=== PATIENT | female | born 1995 | race Caucasian/White ===

== ENCOUNTER 2016-08-25 19:39 | Outpatient (CLI) | payer OTHER ==
[~2016-08-25] VITALS: Ht 162.6 cm; Wt 69.0 kg
[~2016-08-25 19:39] MED LIST: PRENTAB9 PO; RANI15TA PO
[2016-08-25 19:53] VITALS: BP 118/69
[2016-08-25 20:51] VITALS: BP 105/64
--- NOTE | 2016-08-25 21:34 | HPE ---
DATE OF ADMISSION: 08/25/2016 21-year-old 1, para 1, last menstrual period (LMP) 12/19/2015, estimated date of delivery (EDC) 09/24/2016 at 35 and 5 weeks of gestation with a history that she had premature rupture of membranes 4-1/2 days ago. She has no vaginal bleeding. Presently no contractions, occasional discharge. Labs show A+, HIV negative, hepatitis negative, RPR negative, rubella immune. Varicella by history. Urine negative. Gonorrhea, chlamydia negative, 1-hour glucose 131. GBS status unknown. On examination there is no evidence of vaginal bleeding or discharge. Symphysis fundus height is 36, vertex presenting. Category one strip. Nitrazine is negative. Cervix is closed, posterior high, balottable. heart is 144 beats per minute. Category one strip. Blood pressure is 118/69, respirations are 18, pulse 107, temperature 98.3. Urine is 10/20, pH 5. We have counseled the patient regarding pelvic rest, keep her appointment on Wednesday. kick chart. Resume hydration. If there is decreased movement or actual rupture of membranes where it is draining down her legs she is to return immediately.
== END 2016-08-25 21:05 | disposition home or self-care (01) ==
LOC: M LDO 19:39
PROVIDERS: ATTEND Obstetrics & Gynecology
DX: O42.913 Preterm premature rupture of membranes, unspecified as to length of time between rupture and onset of labor, third trimester (principal); Z3A.35 35 weeks gestation of pregnancy

== ENCOUNTER 2016-09-22 12:56 | Inpatient (IN) | payer OTHER ==
[2016-09-22] VITALS (14 sets, daily range): BP systolic 94–134; BP diastolic 51–82
[~2016-09-22] VITALS: Ht 162.6 cm; Wt 72.0 kg
--- NOTE | 2016-09-22 16:34 | REP ---
OB ULTRASOUND: HISTORY: Biophysical profile obtained due to decreased movement. COMPARISON: There are priors for comparison. Limited examination shows a single living intrauterine gestation in the cephalic presentation. Doppler interrogation of the heart shows a heart rate of 148 beats per minute. The cervic measures 2.8 cm in length and is closed. The subjective amniotic fluid volume is within normal limits. The placenta is posterior and not low lying. The calculated amniotic fluid index is 13.3 with an expected range of 7.1 to 21.8. Doppler interrogation of the umbilical artery shows an A/B ratio of 2.03. This is slightly below the expected range of 2.8 to 3.8. biophysical profile score: Breathing 0 Movement 2 Tone 2 Amniotic fluid volume 2 Total: 6 out of 8. IMPRESSION: Limited examination as described above. Signed by Dale Bose DO 09/23/2016 10:11 A
[2016-09-22] MEDS ORDERED: LR 1,000 ML IV SCH (16:57)
[2016-09-22] MEDS ORDERED: OXYTOCIN DRIP 30 UNITS in APPROPRIATE DILUENT 1 EA IV SCH (17:00)
--- NOTE | 2016-09-22 18:42 | HPE ---
DATE OF ADMISSION: 09/22/2016 This lady is a 21-year-old 1, para 0, LMP 12/21/2015, EDC 09/24/2016 at 39 weeks of gestation. She comes in with a history of multiple complaints, having had an episode of weakness and feeling tired for about an hour and then she ate something and laid down and when she got up she appeared to be lightheaded for a period of time and she decided to lie down again. After an interval of undetermined time, when she got up she was not tired or weak and was not lightheaded anymore but she did notice that there was a change in the rhythm of the kick chart. She also complains of bilateral hip pain, vaginal discharge, [place] contractions. Her risk factors are that she transferred in at 30 weeks of gestation. She suffers from reflux and takes Zantac. She has had appropriate interval checkups at the [facility]. Has really not had any issues until today. She has had nine visits. Her anatomy scan was normal. Her blood work shows that she is A+, HIV negative, hepatitis negative, RPR negative, rubella immune. Varicella was immune by history. Urine was negative. Gonorrhea and chlamydia were negative. 1-hour glucose was 131 and she is GBS negative. She declined quad screening and there is no demarcation regarding cystic fibrosis. She is planning on and she is planning on an epidural. On admission her blood pressure was 134/82, respirations are 18, pulse was 99 and temperature 98.6. Urine was 1.010, pH 5, negative, negative, negative. On general examination, she does not appear in any distress. Symphysis fundus height is 40, vertex is presenting part, she is not having any contractions. She is having the occasional uterine irritability. She is not having a category one strip, there are periods of time where there is reduced variability and then there is the occasional acceleration but more so there was prolonged times of reduced variability. There is four quadrant bowel sounds noted. heart baseline is 140. After being on the monitor for about an hour and there is no change in the heart rate pattern, we elected to go ahead and do a biophysical profile which indicated that she had 6/8 in which she had normal fluid at 13.3, SD ratio was 2.03. The baby is in the vertex position and there is no evidence of previa or abruption. Placenta was posterior and grade 3. There was a nuchal cord noted and her total profile was 6/8. She then came back to labor and delivery, replaced on the monitor, and we had a similar NST where there was reduced variability, the occasional contraction, no deceleration, but no accelerations were noted. The rest of the examination was unremarkable. She is normocephalic, atraumatic. Neck full range of motion. Pupils equal and reactive to light. Reflexes are normal upper and lower. Distal pulses are symmetric. No evidence of DVT, PE or superficial phlebitis. Lungs are clear bilaterally to bases. No wheezes or rhonchi. No CVA tenderness. Four quadrant bowel sounds are noted. Stimulation of the baby does not give any accelerations on the monitor. She has no rashes or lesions or pruritus. No arthralgia or myalgia. She has no complaints of cough, wheezes, shortness of breath or dyspnea on exertion. No chest pain. She is not bleeding. Neurologically complete. No incontinency, urgency, or frequency. No nausea, vomiting, diarrhea or constipation. She has no diabetic issues. 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 Family history is noncontributory. She does not smoke or drink. She does not abuse drugs. 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 Our impression at this time is that we have a strip that does not give us reactivity with prolonged accelerations, we have a biophysical profile at 6/8 with no breathing, nuchal cord, and we have a change in the patient's discussion regarding the rhythm. Based on this we are not comfortable in letting her go home at this time and we talked to the patient and her mother about induction of labor with all the supporting evidence. We also suggested to her that with this pattern there is a good possibility that when she has contractions that the heart may show decelerations into the time when we have requirements for urgent delivery by section. We discussed the risks and benefits of a contraction stress test in which we have three contractions in 10 minutes to indicate whether or not placental function is appropriate for continuing on with induction of labor. We also talked about the risks and benefits of an emergency section including hemorrhage, infection, perforation, , remote possibility of NICU admission, remote possibility of blood transfusion, hysterectomy, laceration. Both mother and daughter expressed understanding of the situation and have consented to go ahead with a contraction stress test and we will monitor closely followed up by induction of labor. We will notify neonatology regarding our situation at the present time. In summary, we have a term gestation with a biophysical profile 6/8 with nuchal cord and no breathing, and nonreactive NST over the period of 3 hours. We spent 45 minutes in [id number] discussion with the patient and her mother.
[2016-09-22 18:47] LABS: MEAN CORPUSCULAR HEMOGLOBIN 31.5 pg (27.0-33.0); MEAN CORPUSCULAR HGB CONC 34.3 g/dl (32.0-36.5); RED CELL DISTRIBUTION WIDTH 13.5 % (11.5-14.5); WHITE BLOOD COUNT 7.9 K/mm3 (4.0-10.0)
[2016-09-22] MEDS ORDERED: ACETAMINOPHEN 650 MG SUPP PR SCH (22:30)
[2016-09-22] MEDS ORDERED: BICITRA 30ML SOLN UDC PO ONE (22:30)
[2016-09-22] MEDS ORDERED: BUPIVACAINE HCL 0.25% 10 ML VIAL SC ONE (22:30)
[2016-09-22] MEDS ORDERED: OXYTOCIN INJ 10 UNITS/ML VIAL (J2590) As Ordered ONE (22:48)
[2016-09-22] MEDS ORDERED: MORPHINE PRES-FREE INJ 10 MG/10 ML VIAL (J2274) As Ordered ONE (22:51)
[2016-09-22] MEDS ORDERED: ONDANSETRON 4MG/2ML VIAL (J2405) IV PRN (23:13)
[2016-09-22] MEDS ORDERED: NALBUPHINE HCL 10 MG/ML AMP (J2300) IV PRN (23:13)
[2016-09-22] MEDS ORDERED: METOCLOPRAMIDE INJ 10MG/2ML VIAL (J2765) IV PRN (23:13)
[2016-09-22] MEDS ORDERED: NALOXONE INJ 0.4 MG/1 ML VIAL (J2310) IV PRN ×2 (23:13)
[2016-09-22] MEDS ORDERED: ONDANSETRON 4MG/2ML VIAL (J2405) As Ordered ONE (23:26)
[2016-09-22] MEDS ORDERED: GLYCOPYRROLATE INJ 0.2 MG/ML 2 ML VIAL As Ordered ONE (23:28)
[2016-09-23] VITALS (8 sets, daily range): BP systolic 100–120; BP diastolic 60–80
[2016-09-23] LABS: CORD GAS ABE A -4.5; CORD GAS HCO3 A 25.4 MEQ/L; CORD GAS O2 SAT A 30.9 %; CORD GAS PCO2 A 70.2 mmHg; CORD GAS PH A 7.176 UNITS; CORD GAS PO2 A 19.8 mmHg; CORD GAS SBC A 19.3 MEQ/L; CORD GAS TCO2 A 27.5 MEQ/L
[2016-09-23 00:02] LABS: CORD GAS ABE V -6.1; CORD GAS HCO3 V 20.6 MEQ/L; CORD GAS O2 SAT V 59.2 %; CORD GAS PCO2 V 45.2 mmHg; CORD GAS PH V 7.277 UNITS; CORD GAS PO2 V 28.8 mmHg; CORD GAS SBC V 18.7 MEQ/L
[2016-09-23] MEDS ORDERED: MOM 30ML SUSPENSION UDC PO PRN (00:30)
[2016-09-23] MEDS ORDERED: MEASLES,MUMPS,RUBELLA VACCINE INJ (MMR-II) (90707) SC SCH (00:30)
[2016-09-23] MEDS ORDERED: PERCOCET 5MG/325MG TAB PO PRN ×2 (00:30→00:45)
[2016-09-23] MEDS ORDERED: METHYLERGONOVINE MALEATE 0.2 MG TAB PO PRN (00:30)
[2016-09-23] MEDS ORDERED: RHOGAM 300 MCG (1500 IU) INJ (J2790) IM SCH (00:30)
[2016-09-23] MEDS ORDERED: ANUSOL HC CREAM 30GM TOP PRN (00:30)
[2016-09-23] MEDS ORDERED: diphenhydrAMINE INJ 50MG/ML VIAL (J1200) IV PRN (00:45)
[2016-09-23] MEDS ORDERED: LR 1,000 ML IV SCH (00:45)
[2016-09-23] MEDS ORDERED: METOCLOPRAMIDE INJ 10MG/2ML VIAL (J2765) IV PRN (00:45)
[2016-09-23] MEDS ORDERED: ONDANSETRON 4MG/2ML VIAL (J2405) IV PRN (00:45)
[2016-09-23] MEDS ORDERED: fentaNYL 100 MCG/2 ML INJECTION (J3010) IV PRN (00:45)
[2016-09-23] MEDS: IBUPROFEN 800 MG TAB PO SCH ×3 (01:00→16:59)
[2016-09-23] MEDS: PRENATAL VITAMIN TAB PO SCH (09:20)
--- NOTE | 2016-09-23 09:48 | IPN ---
DATE OF SERVICE: 09/23/2016 This lady is a 21-year-old 1, now para 1, admitted for induction of labor because of a nonreassuring heart strip and a positive contraction stress test. She had a primary section, delivered a live female infant, 7 pounds 15 ounces, 3614 grams. scores of 9 and 9 at 1 and 5 minutes, respectively. The arterial cord gas was 7.17, base excess -4.5, venous pH 7.27, base excess -6.1. Admitting hemoglobin was 12.8, hematocrit 37.4, and platelets are 153. day #1 hemoglobin is still pending. This morning, she is sitting up in bed, doing well. San catheter is draining. Afebrile. Her blood pressure is 117/74, respirations 18, pulse 82, temperature is 97.9. We discussed phlebitis, cystitis, mastitis, endometritis, cellulitis, diet, excise, pain management, perineal, breast, and wound care. She is wanting a Mirena intrauterine contraceptive device (IUCD) at her 6-week checkup. Incision is clean and dry. Uterus 2 below. Lochia is moderate. Bowel sounds are present in all four quadrants. No evidence of deep venous thrombosis (DVT), pulmonary embolism (PE), or superficial phlebitis. Chest is clear bilaterally to the bases. In summary, we have a term gestation who delivered a live female infant by section.
--- NOTE | 2016-09-23 10:54 | RO ---
DATE OF PROCEDURE: 09/22/2016 PREOPERATIVE DIAGNOSES: Nonreassuring heart strip, positive contraction stress test, remote from delivery. POSTOPERATIVE DIAGNOSES: Nonreassuring heart strip, positive contraction stress test, remote from delivery, plus cord around the legs in the ankles. OPERATION PROPOSED: Primary section. OPERATION PERFORMED: Primary section. ESTIMATED BLOOD LOSS: 400 mL. SURGEON: Rangel Bear MD STRIP STAMP STRAIGHTENER: Mary Vee MD ANESTHESIA: DESCRIPTION OF OPERATION: Under adequate anesthesia, prepped and draped in the supine position, San catheter in the bladder draining clear urine, acetaminophen suppository 1300 mg per rectum, 2 grams of Ancef on board preoperatively, time-out performed. Dr. Gibbs in attendance for resuscitation. Low transverse incision was made into the abdomen, passing through abdominal layers, securing hemostasis. Opening peritoneal cavity, we noticed the lower segment was thin. Low transverse incision into the uterus. Clear liquor. Persistent occipitoposterior (POP) position, live female delivered, 7 pounds 15 ounces, 3614 grams. scores of 9 and 9 at 1 and 5 minutes, respectfully. Arterial pH 7.17, base excess -4.5. Venous pH 7.27, base excess -6.1. Placenta was manually removed and looked to be calcified. Three vessels, membranes, and tissues intact. Aerobic and anaerobic cultures from the placenta and the intrauterine contents were done, sent off under separate cover. Uterus contracted well down on Pitocin. The lower segment was oversewn in the usual fashion in two layers, and reperitonealization was performed. With instrument and pad count correct, the abdomen was then closed. Running stitch for the perineum. The same for the fascia. Interrupted subcutaneous Dexon to the skin. Marcaine 0.25% spray and Telfa; and the patient was sent back to recovery in good condition.
[2016-09-23] MEDS: DOCUSATE SODIUM 100 MG CAP PO PRN (20:40)
[2016-09-23] MEDS: PERCOCET 5MG/325MG TAB PO PRN (21:43)
[2016-09-24] MEDS: IBUPROFEN 800 MG TAB PO SCH ×3 (00:33→17:04)
[2016-09-24] MEDS: PERCOCET 5MG/325MG TAB PO PRN (03:20)
[2016-09-24 05:57] VITALS: BP 110/62
[2016-09-24 06:45] LABS: MEAN CORPUSCULAR HEMOGLOBIN 30.8 pg (27.0-33.0); MEAN CORPUSCULAR HGB CONC 32.9 g/dl (32.0-36.5); MEAN CORPUSCULAR VOLUME 93.7 fl (80.0-96.0); RED CELL DISTRIBUTION WIDTH 13.6 % (11.5-14.5); WHITE BLOOD COUNT 5.3 K/mm3 (4.0-10.0)
[2016-09-24] MEDS: PRENATAL VITAMIN TAB PO SCH (09:36)
--- NOTE | 2016-09-24 10:27 | IPN ---
DATE: 09/24/2016 DAY #2 NOTE: This lady is a primary section for nonreassuring heart and she is on day #2 at present time. For whatever reason her San catheter was not removed. She diuresed 4300 mL of fluid. The San catheter was removed today. Her vital signs today, her blood pressure is 110/62, respirations 16, pulse 88, temperature is 99.1, but she has 3 or 4 blankets on her and this is not an indication of any febrile illness. Her hemoglobin on day #1 is 11.6, hematocrit 35.2 and platelets are 155. The rest of the examination is unremarkable. She is normocephalic, atraumatic. Neck full range of motion. Pupils equal and reactive to light. Chest is clear bilaterally at bases. No wheezes or rhonchi. No evidence of deep venous thrombosis (DVT), pulmonary embolism (PE) or superficial phlebitis. Uterus is 2 below. Lochia is moderate. Incision is clean and dry. Bowel sounds are active. She has no rashes, lesions or pruritus. No arthralgia or myalgia. She is not complaining of a cough, wheeze, shortness of breath or dyspnea on exertion. No chest pain. Neuro complete. No nausea, vomiting, diarrhea or constipation. In summary, we have a day #2 patient who still has a San catheter and removed today, diuresed 4300 mL. Our plan of management is to have her shower and potentially discharge tomorrow morning.
[2016-09-24 17:55] VITALS: BP 114/75
[2016-09-24 20:59] LABS: BASO % 0.1 % (0.0-1.0); EOS % 0.2 % (0.0-3.0); LARGE UNSTAINED CELL # 0.1 K/mm3 (0.0-0.4); LARGE UNSTAINED CELL % 0.5 % (0.0-4.0); LYMPH # 0.4 K/mm3 (1.5-6.5); LYMPH % 3.3 % (24.0-44.0); MEAN CORPUSCULAR HEMOGLOBIN 30.9 pg (27.0-33.0); MEAN CORPUSCULAR VOLUME 93.5 fl (80.0-96.0); MONO # 0.3 K/mm3 (0.0-0.8); MONO % 2.4 % (0.0-5.0); NEUTROPHILS # 10.2 K/mm3 (1.8-7.7); NEUTROPHILS % 93.4 % (36.0-66.0); PLATELET COUNT, AUTOMATED 187 k/mm3 (150-450); RED CELL DISTRIBUTION WIDTH 13.7 % (11.5-14.5); WHITE BLOOD COUNT 10.9 K/mm3 (4.0-10.0)
[2016-09-24] MEDS: PIPERACILLIN/TAZOBACTAM SOD 3.375 GM in D5W MINI-BAG PLUS 50 ML IV SCH (21:02)
[2016-09-24] MEDS: DOCUSATE SODIUM 100 MG CAP PO PRN (21:02)
[2016-09-25] MEDS: IBUPROFEN 800 MG TAB PO SCH ×3 (00:43→16:55)
[2016-09-25] MEDS: PIPERACILLIN/TAZOBACTAM SOD 3.375 GM in D5W MINI-BAG PLUS 50 ML IV SCH ×3 (05:00→21:20)
[2016-09-25 06:05] VITALS: BP 115/63
[2016-09-25] MEDS: PRENATAL VITAMIN TAB PO SCH (08:30)
[2016-09-25 18:06] VITALS: BP 131/77
[2016-09-26] MEDS: IBUPROFEN 800 MG TAB PO SCH ×3 (00:38→17:31)
[2016-09-26] MEDS: PIPERACILLIN/TAZOBACTAM SOD 3.375 GM in D5W MINI-BAG PLUS 50 ML IV SCH (05:22)
[2016-09-26 05:51] VITALS: BP 116/76
[2016-09-26] MEDS: PRENATAL VITAMIN TAB PO SCH (07:52)
[2016-09-26] MEDS: valACYclovir HCL 500 MG TAB PO SCH (09:47)
[2016-09-26] MEDS: AMPICILLIN 250 MG CAP PO SCH ×2 (12:20→17:29)
[2016-09-26 18:00] VITALS: BP 105/66
[2016-09-27] MEDS: IBUPROFEN 800 MG TAB PO SCH ×2 (00:50→08:45)
[2016-09-27] MEDS: AMPICILLIN 250 MG CAP PO SCH ×3 (00:50→12:27)
[2016-09-27 05:44] VITALS: BP 111/68
[2016-09-27] MEDS: valACYclovir HCL 500 MG TAB PO SCH (08:45)
[2016-09-27] MEDS: PRENATAL VITAMIN TAB PO SCH (08:45)
[2016-09-27] MEDS ORDERED: IBUP-1114 PO (11:37)
[2016-09-27] MEDS ORDERED: OXYC1TAB23 PO (11:38)
[2016-09-27] MEDS ORDERED: VALT500T PO (11:38)
[2016-09-27] MEDS ORDERED: COLA100C PO (11:39)
--- NOTE | 2016-09-28 09:32 | IPN ---
DATE: 09/25/2016 This lady is second day section. She developed a temperature of 102.5 at 1850 hours. No evidence of chills, rigors. No evidence of urinary tract infection (UTI). No evidence of incisional area disruption. The rest of the examination was unremarkable. Chest was clear bilaterally to the bases. Heart sounds were normal. Abdomen was soft. Uterus 2 below. Lochia is moderate. Incision was clean and dry. No evidence of deep venous thrombosis (DVT), pulmonary embolism (PE), or superficial phlebitis. She was started on antibiotic prophylactically. Blood culture was performed. Urine for culture and sensitivity (C and S) was done. Incentive spirometry was initiated. Her blood pressure today is 115/63, respirations 16, pulse 110, temperature is 98.9. She has not had an elevated temperature since 1850 hours on 09/24/2016. Our plan of management is continue antibiotics and maintain that she is afebrile at 24 hours, at which time she can be discharged. Patient was given her medications, explained not to start them until she got home. Patient is deciding whether she is going to go home tonight after her 24 hours or stay until the next morning. Breast pump prescription was given. Patient is feeling well, mobilizing, voiding, passing gas, bowel movements, and she is feeding her baby. IN SUMMARY: We have a post day section, elevation of temperature at 102.5. The uterine culture for aerobes and anaerobes was negative that we did at the time of delivery, and we await the cultures from the blood cultures and urine.
== END 2016-09-27 13:45 | disposition home or self-care (01) | DRG 765 ==
LOC: M LDO 12:56 → M LDI 16:41 → M OBS 09-23 01:58
PROVIDERS: ADMIT Obstetrics & Gynecology; ATTEND Obstetrics & Gynecology
PROC: 10D00Z1 Extraction of Products of Conception, Low, Open Approach (ICD-10-PCS; principal; 2016-09-22 07:51)
DX: O76 Abnormality in fetal heart rate and rhythm complicating labor and delivery (principal); O98.512 Other viral diseases complicating pregnancy, second trimester; B00.9 Herpesviral infection, unspecified; O69.82X0 Labor and delivery complicated by other cord entanglement, without compression, not applicable or unspecified; Z3A.39 39 weeks gestation of pregnancy; Z37.0 Single live birth

== ENCOUNTER 2018-04-30 22:49 | Emergency (ER) | payer OTHER ==
[2018-04-30] MEDS: NS 1,000 ML IV (23:30)
[2018-04-30 23:41] LABS: BASO % 0.1 % (0.0-1.0); EOS # 0.1 10^3/uL (0.0-0.50); EOS % 0.9 % (0.0-3.0); HEMATOCRIT 38.5 % (36.0-47.0); HEMOGLOBIN 12.8 g/dl (12.0-15.5); IMMATURE GRANULOCYTE % 0.2 % (0-3.0); LYMPH # 3.5 10^3/uL (1.5-6.5); LYMPH % 37.4 % (24.0-44.0); MEAN CORPUSCULAR HEMOGLOBIN 31.5 pg (27.0-33.0); MEAN CORPUSCULAR HGB CONC 33.2 g/dl (32.0-36.5); MEAN CORPUSCULAR VOLUME 94.8 fl (80.0-96.0); MONO # 0.7 10^3/uL (0.0-0.8); MONO % 7.6 % (0.0-5.0); NEUTROPHILS # 5.1 10^3/uL (1.8-7.7); NEUTROPHILS % 53.8 % (36.0-66.0); PLATELET COUNT, AUTOMATED 258 10^3/uL (150-450); RED BLOOD COUNT 4.06 10^6/uL (4.00-5.40); RED CELL DISTRIBUTION WIDTH 12.4 % (11.5-14.5); WHITE BLOOD COUNT 9.4 10^3/uL (4.0-10.0)
[2018-04-30 23:57] LABS: CONTROL LINE HCG INT CTR LINE PRESENT; HCG, SERUM QUALITATIVE NEGATIVE (NEGATIVE)
[2018-05-01 00:01] LABS: KETONE, URINE AUTO RFX NEGATIVE (NEGATIVE); LEUKOCYTE ESTERASE UR AUTO RFX NEGATIVE (NEGATIVE); MUCUS, URINE RFX SMALL (NEGATIVE); NITRITE, URINE AUTO RFX NEGATIVE (NEGATIVE); RBC, URINE AUTO RFX 1 /HPF (0-3); SPECIFIC GRAVITY UR AUTO RFX 1.019 (1.002-1.035); SQUAM EPITHELIAL CELL UR AURFX 0 /HPF (0-6); WBC, URINE AUTO RFX 2 /HPF (0-3)
[2018-05-01 00:05] LABS: ALBUMIN 3.6 GM/DL (3.2-5.2); ALKALINE PHOSPHATASE 81 U/L (45-117); ALT/SGPT 26 U/L (12-78); ANION GAP 8 MEQ/L (8-16); AST/SGOT 12 U/L (7-37); BILIRUBIN,DIRECT < 0.1 MG/DL (0.0-0.2); BILIRUBIN,TOTAL 0.3 MG/DL (0.2-1.0); BLOOD UREA NITROGEN 13 MG/DL (7-18); CALCIUM LEVEL 8.6 MG/DL (8.5-10.1); CARBON DIOXIDE LEVEL 25 MEQ/L (21-32); CHLORIDE LEVEL 107 MEQ/L (98-107); GLOMERULAR FILTRATION RATE > 60.0 (>60); GLUCOSE, FASTING 84 MG/DL (70-100); POTASSIUM SERUM 3.9 MEQ/L (3.5-5.1); SODIUM LEVEL 140 MEQ/L (136-145); TOTAL PROTEIN 7.2 GM/DL (6.4-8.2)
[2018-05-01] MEDS: KETOROLAC 30 MG/ML VIAL (J1885) IV (00:11)
== END 2018-05-01 01:50 | disposition home or self-care (01) ==
LOC: M ED 05-01 01:50
DX: N83.201 Unspecified ovarian cyst, right side (principal); Z97.5 Presence of (intrauterine) contraceptive device; Z88.5 Allergy status to narcotic agent; Z88.8 Allergy status to other drugs, medicaments and biological substances
CPT/HCPCS: J1885